=== PATIENT | female | born 1975 | race Caucasian/White ===

== ENCOUNTER 2020-08-13 18:40 | Emergency (ER) | payer OTHER, SELFPAY ==
[2020-08-13 18:50] VITALS: BP 168/79; PULSE 95; RESP 14; TEMP 36.7; O2SAT 99; BMI 30.9
--- NOTE | 2020-08-13 18:59 | DI.RAD.S_ITS ---
PROCEDURE: XR WRIST LT MIN 3V INDICATIONS: left wrist and mid hand pain TECHNIQUE: 4 views of the wrist were acquired. COMPARISON: None. FINDINGS: Bones: No fractures or dislocations. No suspicious bony lesions. Scaphoid view: No visualized fracture. Soft tissues: No suspicious soft tissue calcifications. IMPRESSION: No visualized acute fracture or dislocation. However, if clinical concern and/or pain persist, short interval imaging followup in 7-10 days is recommended, as occult injury cannot be definitively excluded. Dictated by: Olivia Amaro M.D. on 08/13/2020 at 19:22 Approved by: Olivia Amaro M.D. on 08/13/2020 at 19:23
--- NOTE | 2020-08-13 19:35 | ED.UPPEXIN ---
HPI - Extremity Injury (Upper) <MIRIAM Anderson - Last Filed: 08/13/20 20:03> General Chief Complaint: Extremity Injury, Upper Stated Complaint: Left Wrist Injury Time Seen by Provider: 08/13/20 18:47 Source: patient Mode of arrival: Ambulatory Limitations: no limitations History of Present Illness HPI narrative: This is a 45 year female, nonsmoker, who has no contributory medical history presents to ED with chief complain of left wrist and mid hand pain and small a knot in left distal radial aspect. Patient reports was lifting boxes from a heart to other being with repeated lateral movement of bilateral wrists 5 days ago at work. Patient rates pain as 6-7 out of 10 which is constant dull aches. Patient reports pain increases with pronation and supination motion and tender to palpate in left distal radial wrist. Patient reports intact sensations, distal motions in all fingers. Patient reports noticed mild bruise in ring finger and little finger in metacarpal but denies known injuries or trauma to affected site. Patient denies obvious swelling on affected hand. She has been using a wrist brace and night to sleep and taking NyQuil as to help with sleep from pain. She had not use ibuprofen today but had used yesterday. She also had used cool and he pack alternating on affected site for pain. Right dominant hand. Related Data Home Medications Medication Instructions Recorded Confirmed multivitamin [Multi-Vitamin] tab 08/13/20 Allergies Allergy/AdvReac Type Severity Reaction Status Date / Time Sulfa (Sulfonamide Allergy Verified 08/13/20 18:55 Antibiotics) Review of Systems <MIRIAM Anderson - Last Filed: 08/13/20 20:03> Review of Systems Narrative: General: Denies fever, chills, fatigue, malaise, sweats. Respiratory: Denies dyspnea, cough, wheezing, hemoptysis, sputum. Cardiovascular: Denies chest pain, palpitations, orthopnea, edema. Musculoskeletal: See HPI Skin: See HPI Patient History <MIRIAM Anderson - Last Filed: 08/13/20 20:03> Medical History No significant past medical history Surgical History No pertinent past surgical history Social History Smoking Status: Unknown if ever smoked Smoking Status: Unknown if ever smoked alcohol intake frequency: holidays/special occasions only Substance Use Type: does not use Exam <MIRIAM Anderson - Last Filed: 08/13/20 20:03> Narrative Exam Narrative: General appearance: well developed, well nourished, in no acute distress. Head: normocephalic, atraumatic, no scalp lesions, non-tender. ENT: Hearing grossly intact. Airway patent. Neck/Thyroid: neck supple, full range of motion, no visible masses or meningeal signs. No JVD, non-tender without lymphadenopathy. Skin Warm and dry and appropriate color for ethnicity. Mild light ecchymosis to left metacarpal of ring and little finger without obvious edema/swelling. Heart: no clubbing, no cyanosis, no edema. Lungs: Breathing even and unlabored. No stridor. No accessory muscles used. Able to speak in full sentences. Chest: normal shape and expansion. Abdomen: non-obese, non-distended. Neurologic: alert and oriented. Cognitive exam, [employer] and PNS grossly intact on informal exam. Psych: good eye contact, normal affect. Initial Vital Signs Initial Vital Signs: Vital Signs Temperature 98.1 F 08/13/20 18:50 Pulse Rate 95 H 08/13/20 18:50 Respiratory Rate 14 08/13/20 18:50 Blood Pressure 168/79 H 08/13/20 18:50 Pulse Oximetry 99 08/13/20 18:50 Extrem Left upper extremity: elbow/forearm Details: tenderness (Dorsal and volar aspect of forearm without deformity, swelling, redness), normal ROM and distal pulses intact; no swelling, no unusual warmth, no ecchymosis, no crepitus and no foreign bodies, wrist Details: normal to inspection, tenderness Location: of the distal radius, swelling Location: of the volar wrist (Distal radius), normal ROM, ecchymosis (Metacarpal of ring and little finger in dorsal aspect), normal vascular exam and radial pulse present; no unusual warmth, no penetrating wound and no deformity and hand Details: normal to inspection, normal capillary refill, neuromotor exam normal, neurosensory exam normal, vascular exam Details: radial pulse present and normal capillary refill and normal ROM of fingers <Theo Gonzalez DO - Last Filed: 08/14/20 07:35> Initial Vital Signs Initial Vital Signs: Vital Signs Temperature 98.1 F 08/13/20 18:50 Pulse Rate 95 H 08/13/20 18:50 Respiratory Rate 14 08/13/20 18:50 Blood Pressure 168/79 H 08/13/20 18:50 Pulse Oximetry 99 08/13/20 18:50 Scores <MIRIAM Anderson - Last Filed: 08/13/20 20:03> GCS [place] coma scale eye opening: Spontaneous [place] coma scale verbal response: Orientated [place] coma scale motor response: Obey commands Clive coma scale total score: 15 Course <MIRIAM Anderson - Last Filed: 08/13/20 20:03> Orders Ordered: ED Orders 08/13/20 18:59 XR wrist LT min 3V Stat Vital Signs Vital signs: Vital Signs - 8 hr 08/13/20 18:50 Temperature 98.1 F Pulse Rate 95 H Respiratory Rate 14 Blood Pressure 168/79 H Pulse Oximetry 99 <Theo Gonzalez DO - Last Filed: 08/14/20 07:35> Orders Ordered: ED Orders 08/13/20 18:59 XR wrist LT min 3V Stat Vital Signs Vital signs: Vital Signs - 8 hr 08/13/20 18:50 Temperature 98.1 F Pulse Rate 95 H Respiratory Rate 14 Blood Pressure 168/79 H Pulse Oximetry 99 MDM - Extremity Injury (Upper) <MIRIAM Anderson Last Filed: 08/13/20 20:03> Differential Diagnosis Differential diagnosis: Likely sprain and strain of wrist and fracture of wrist Medical Records Attestation: I reviewed the patient's medical records. Imaging Data XR-Wrist LT: Radiologist's Impression: [address] [id number] ReportSigned Patient: Michelle Manzo MMR#: [id number]: [id number]:[id number]/Sex: 45 / FDate of Service: 08/13/20Loc: EDAccession Number: [id number] Procedure: XR wrist LT min 3V Ordering Provider: Theron Gonzáles PROCEDURE: XR WRIST LT MIN 3V INDICATIONS: left wrist and mid hand pain TECHNIQUE: 4 views of the wrist were acquired. COMPARISON: None. FINDINGS: Bones: No fractures or dislocations. No suspicious bony lesions. Scaphoid view: No visualized fracture. Soft tissues: No suspicious soft tissue calcifications. IMPRESSION: No visualized acute fracture or dislocation. However, if clinical concern and/or pain persist, short interval imaging followup in 7-10 days is recommended, as occult injury cannot be definitively excluded. Dictated by: Olivia Amaro M.D. on 08/13/2020 at 19:22 Approved by: Olivia Amaro M.D. on 08/13/2020 at 19:23 MDM Narrative Medical decision making narrative: This is a 45-year-old female right dominant hand presents to ED with chief complain of left metacarpal pain and wrist pain after she was caring heavy boxes from a cart to a being with repeated lateral deviation of wrist motion 5 days ago. She has intact sensation, mobility to fingers, and distal pulses. Pain increases with supination and pronation of affected hand. She has been using her own wrist guard. X-ray test obtained which shows no acute findings of fractures or dislocations. She had a small knot in distal radial aspect of the wrist which is tender to palpate. It is unclear if this was existing for the pain started or developed after the carrying heavy boxes. It could be an inflammation or a cyst. I shared x-ray findings with patient and advised to continue to use wrist guard and avoid heavy lifting for next several days and to use [id number] Tylenol and NSAIDS. Return precautions discussed with patient and advised to follow up with primary care physician if pain persists greater than 10 days to 2 weeks. Patient verbalized understanding and agreement with the treatment plan. Discharge Plan Departure Patient Disposition: Home Clinical Impression: Muscle strain of left wrist Qualifiers: Encounter type: initial encounter Qualified Code(s): S66.912A - Strain of unspecified muscle, fascia and tendon at wrist and hand level, left hand, initial encounter Instructions: DI for Wrist Strain Activity Restrictions/Additional Instructions: You have been diagnosed with [wrist strain. X-ray test does not show acute findings such as fractures or dislocations. Please continue to use wrist guard to help with pain and avoid overuse.]. What to do: *Take your medications as directed. You can take [id number] Tylenol and or Motrin as needed for discomfort. Tylenol 650-1000 mg up to 3 times a day as needed and ibuprofen 400-600 mg up to 3 times a day as needed for pain with food to decrease GI irritations. *Follow up with your primary care provider in 2-3 days, call for an appointment. Let them know you were seen in the ED and that we asked you to be seen in follow up. *Return to ED if you have any new, worsening, or concerning symptoms, such as [worsening pain, tingling/numbness/weakness to affected hand, chest pain, breathing difficulty, unable to tolerate fluids, fever or any acute concerns]. Prescriptions: No Action multivitamin [Multi-Vitamin] Tablet RF: 0 Referrals: Naty Sanchez MD [Primary Care Provider] - <Theo Gonzalez DO - Last Filed: 08/14/20 07:35> Cosign ED Attending Cossylvieature Attestation: I was immediately available in the department for consultation. This documentation has been reviewed and I agree with assessment and plan. Supervised by Theo Gonzalez DO
== END 2020-08-13 19:58 | disposition home or self-care (01) ==
PROVIDERS: Emergency Provider Nurse Practitioner Family; PCP Family Medicine
DX: S66.912A Strain of unspecified muscle, fascia and tendon at wrist and hand level, left hand, initial encounter (principal); X50.0XXA Overexertion from strenuous movement or load, initial encounter
CPT/HCPCS: 73110; 99281; 99283